=== PATIENT | male | born 1945 | race Caucasian/White ===

== ENCOUNTER 2017-03-08 01:03 | Emergency (ER) | payer OTHER ==
[~2017-03-08] VITALS: Ht 170.2 cm; Wt 72.6 kg
--- NOTE | ~2017-03-08 | EKG ---
[address] [address] ELECTROCARDIOGRAM REPORT Name: ESTELA OSBORNE [facility]: [id number] Admission: 03/08/17 Attend Phys: Discharge: 03/08/17 Date of : 45 Report #: [id number] THIS REPORT FOR: //name// [facility] ED Test Date: 2017-03-08 Test Time: 01:15:31 Pat Name: ESTELA OSBORNE Department: Room: Gender: M Theology Teacher: DENAE : 1945 Requested By: Logan Carvalho Order Number: [id number] MD: Toan Beltran Measurements Intervals [place] Rate: 58 P: 24 NH: 160 QRS: 44 QRSD: 86 T: 43 QT: 439 QTc: 432 Interpretive Statements Sinus rhythm No significant abnormality No previous ECG available for comparison Electronically Signed On 03-09-2017 14:57:21 CDT by Toan Beltran [email or web address] <ELECTRONICALLY SIGNED> By: Toan Beltran MD, [facility] 03/09/17 1457 0115 0115 Toan Beltran MD, FACC /EPI
[2017-03-08] MEDS ORDERED: DIOVAN 80 MG TA80 M1 PO (01:16)
[2017-03-08 01:41] LABS: BASOPHILS 0.9 % (0.0-2.0); EOSINOPHILS 3.8 % (0.0-3.0); HEMATOCRIT 39.1 % (42.0-52.0); HEMOGLOBIN 13.3 gm/dL (14.0-18.0); LYMPHOCYTES 21.9 % (24.0-44.0); MANUAL DIFF NO; MCH 32.2 pg (26.0-34.0); MCV 94.5 fL (80.0-100.0); MONOCYTES 5.8 % (1.0-8.0); PLATELET COUNT 179 thou/uL (150-400); POLYS 67.6 % (36.0-66.0); RBC 4.14 mil/uL (4.50-6.00); RDW 13.9 % (10.5-14.5); WBC 8.9 thou/uL (4.0-11.0)
[2017-03-08 01:49] LABS: URINE BILIRUBIN NEGATIVE (Negative); URINE BLOOD NEGATIVE (Negative); URINE COLOR YELLOW; URINE GLUCOSE-RANDOM* NEGATIVE (Negative); URINE KETONES NEGATIVE (Negative); URINE NITRITE NEGATIVE (Negative); URINE PROTEIN (DIPSTICK) NEGATIVE (Negative); URINE SPECIFIC GRAVITY 1.015 (1.003-1.035); URINE UROBILINOGEN 0.2 E.U./dl (0.2-1.0)
[2017-03-08 01:50] LABS: ANION GAP 7 mmol/L (7-16); BUN 36 mg/dL (7-18); CALCIUM 8.2 mg/dL (8.5-10.1); CHLORIDE 105 mmol/L (98-107); CO2 29 mmol/L (21-32); CREATININE 0.8 mg/dL (0.7-1.3); GLUCOSE 120 mg/dL (74-106); POTASSIUM 4.4 mmol/L (3.5-5.1); SODIUM 141 mmol/L (136-145)
[2017-03-08 02:09] LABS: ALBUMIN 3.5 g/dL (3.4-5.0); ALKALINE PHOSPHATASE 47 U/L (46-116); CK-MB MASS 1.6 ng/mL (<0.5-3.6); MAGNESIUM 2.2 mg/dL (1.8-2.4); NT-PRO BRAIN NAT PEPTIDE 71 pg/mL (<300); SGOT 19 U/L (15-37); SGPT 25 U/L (30-65); TOTAL BILIRUBIN 0.6 mg/dL (<0.1-1.0); TOTAL PROTEIN 6.7 g/dL (6.4-8.2); TROPONIN-I < 0.04 ng/mL (<0.04-0.07)
[2017-03-08] MEDS ORDERED: PEPCID20 MG PO (02:22)
[2017-03-08] MEDS ORDERED: ZOFRAN ODT4 MG DISSOLVE (02:22)
[2017-03-08 03:30] VITALS: BP 135/48
== END 2017-03-08 03:38 | disposition home or self-care (01) ==
LOC: ER 01:03
PROVIDERS: Emergency Medicine
DX: R55 Syncope and collapse (principal); K29.60 Other gastritis without bleeding; I10 Essential (primary) hypertension; Z88.7 Allergy status to serum and vaccine